=== PATIENT | male | born 1985 | race Two or more races ===

== ENCOUNTER 2023-10-13 14:02 | Emergency (ER) | payer SELFPAY ==
[2023-10-13 14:46] VITALS: BP 124/69; PULSE 61; RESP 20; TEMP 98.4; BMI 23.3
[2023-10-13] MEDS ORDERED: IBUPROFEN 400 MG TABLET (FP) PO ONE (15:20)
[2023-10-13] MEDS: IBUPROFEN 400 MG TABLET (FP) PO ONE (15:22)
== END 2023-10-13 16:21 | disposition home or self-care (01) ==
LOC: JER 14:02
DX: R06.02 Shortness of breath (principal); R07.89 Other chest pain
CPT/HCPCS: 71046-TC-FY; 93005; 93010; 99284-25

== ENCOUNTER 2024-03-29 10:27 | Day surgery (SDC) | payer OTHER ==
[2024-03-27 14:02] VITALS: BMI 23.3
[2024-03-29] MEDS ORDERED: BUPIVACAINE LIPOSOME/PF (EXPAREL) 266 MG/20 ML VIAL ONE (11:17)
[2024-03-29] MEDS ORDERED: BUPIVACAINE HCL/PF 0.5% (5 MG/ML) 30 ML VIAL IJ ONE (11:17)
[2024-03-29] MEDS ORDERED: MIDAZOLAM HCL 2 MG/2 ML SINGLE DOSE VIAL ONE ×2 (11:17→15:11)
[2024-03-29] MEDS ORDERED: PROPOFOL 20 ML ONE ×3 (11:21→13:11)
[2024-03-29] MEDS ORDERED: SUCCINYLCHOLINE CHLORIDE 200 MG/10 ML SYRINGE ONE (11:22)
[2024-03-29] MEDS ORDERED: FENTANYL CITRATE/PF 50 MCG/ML VIAL ONE ×2 (12:49→12:50)
[2024-03-29] MEDS ORDERED: TRANEXAMIC ACID 1000 MG/10 ML VIAL ONE (13:25)
[2024-03-29] MEDS ORDERED: ceFAZolin SODIUM 1 GM VIAL ONE (13:25)
[2024-03-29] MEDS ORDERED: ONDANSETRON 4 MG/2 ML VIAL ONE (15:07)
[2024-03-29] MEDS ORDERED: ONDANSETRON 4 MG/2 ML VIAL IVPUSH PRN (15:29)
[2024-03-29] MEDS ORDERED: oxyCODONE HCL 5 MG TABLET PO PRN (15:29)
[2024-03-29] MEDS ORDERED: LACTATED RINGERS SOLUTION 1,000 ML IV SCH (15:30)
[2024-03-29 16:02] VITALS: RESP 16
[2024-03-29] MEDS: oxyCODONE HCL 5 MG TABLET PO ONE (16:35)
[2024-03-29 16:37] VITALS: TEMP 97.1
[2024-03-29] MEDS ORDERED: oxyCODONE HCL 5 MG TABLET ONE (16:37)
[2024-03-29 16:56] VITALS: BP 125/70; PULSE 72
== END 2024-03-29 17:03 | disposition home or self-care (01) ==
LOC: FASU 10:27
PROVIDERS: ATTEND Orthopaedic Surgery Sports Medicine
PROC: 0QSK04Z Reposition Left Fibula with Internal Fixation Device, Open Approach (ICD-10-PCS; principal; 2024-03-29 13:29)
DX: S82.62XA Displaced fracture of lateral malleolus of left fibula, initial encounter for closed fracture (principal); S93.432A Sprain of tibiofibular ligament of left ankle, initial encounter; X58.XXXA Exposure to other specified factors, initial encounter; Y93.9 Activity, unspecified; Y92.9 Unspecified place or not applicable
CPT/HCPCS: 27792; 27829; C1713; 73610-TC-LT-FY; 73630-TC-LT; 94760